=== PATIENT | male | born 1955 | race Caucasian/White ===

== ENCOUNTER 2018-09-26 20:17 | Observation (INO) | payer MEDICARE, OTHER ==
[~2018-09-26] VITALS: Ht 185.4 cm; Wt 104.0 kg
--- NOTE | 2018-09-26 20:33 | ERD ---
ER Documentation Chief Complaint Chief Complaint AP x 2 hours after eating dinner (hot dog) HPI The patient is a 62-year-old male, presenting to the ER because of right-sided abdominal pain after he had dinner, denies similar symptoms previously, denies fever, chills, neck pain, chest pain, vomiting, dysuria, diarrhea. He does not smoke nor drink Medical history: Hypertension, CAD Past surgical history: None ROS All systems reviewed and are negative except as per history of present illness. Medications Home Meds Active Scripts Ibuprofen* (Motrin*) 600 Mg Tab, 600 MG PO Q6H PRN for PAIN AND OR ELEVATED TEMP, #20 TAB Prov:TYRONE HARRIS MD 09/26/18 Allergies Allergies: Coded Allergies: No Known Allergy (Unverified , 09/26/18) Physical Exam Vitals Vital Signs Date Temp Pulse Resp B/P (MAP) Pulse Ox O2 O2 Flow FiO2 Time Delivery Rate 09/26/18 98.2 66 20 133/91 99 20:30 (105) Physical Exam Const: No acute distress. Head: Atraumatic. Eyes: Normal Conjunctiva. ENT: Normal External Ears, Nose and Mouth. Neck: Full range of motion. No meningismus. Resp: Clear to auscultation bilaterally. Cardio: Regular rate and rhythm. Abd: Soft, non distended, normal bowel sounds, mild right-sided abdominal tenderness, no rigidity/rebound/CVA tenderness Skin: No petechiae or rashes. Back: No midline or flank tenderness. Ext: No cyanosis, or edema. Neur: Awake and alert. No focal deficit Psych: Normal Mood and Affect. Result Diagram: 09/26/18211509/26/182115 Results 24 hrs Laboratory Tests Test 09/26/18 21:16 09/26/18 23:05 White Blood Count 9.1 10^3/ul Red Blood Count 5.98 10^6/ul Hemoglobin 16.2 g/dl Hematocrit 50.8 % Mean Corpuscular Volume 84.9 fl Mean Corpuscular Hemoglobin 27.1 pg Mean Corpuscular Hemoglobin Concent 31.9 g/dl Red Cell Distribution Width 12.7 % Platelet Count 218 10^3/UL Mean Platelet Volume 9.9 fl Immature Granulocytes % 0.400 % Neutrophils % 70.1 % Lymphocytes % 18.1 % Monocytes % 9.4 % Eosinophils % 1.3 % Basophils % 0.7 % Nucleated Red Blood Cells % 0.0 /100WBC Immature Granulocytes # 0.040 10^3/ul Neutrophils # 6.4 10^3/ul Lymphocytes # 1.6 10^3/ul Monocytes # 0.9 10^3/ul Eosinophils # 0.1 10^3/ul Basophils # 0.1 10^3/ul Nucleated Red Blood Cells # 0.0 10^3/ul Sodium Level 143 mmol/L Potassium Level 4.3 mmol/L Chloride Level 103 mmol/L Carbon Dioxide Level 29 mmol/L Anion Gap 11 Blood Urea Nitrogen 21 mg/dl Creatinine 0.92 mg/dl Est Glomerular Filtrat Rate mL/min > 60 mL/min Glucose Level 121 mg/dl Calcium Level 9.6 mg/dl Total Bilirubin 0.5 mg/dl Direct Bilirubin 0.00 mg/dl Indirect Bilirubin 0.5 mg/dl Aspartate Amino Transf (AST/SGOT) 25 IU/L Alanine Aminotransferase (ALT/SGPT) 35 IU/L Alkaline Phosphatase 74 IU/L Total Protein 7.2 g/dl Albumin 4.0 g/dl Globulin 3.20 g/dl Albumin/Globulin Ratio 1.25 Lipase 107 U/L Bedside Urine pH (LAB) 6.0 Bedside Urine Protein (LAB) Negative Bedside Urine Glucose (UA) Negative Bedside Urine Ketones (LAB) Negative Bedside Urine Blood Negative Bedside Urine Nitrite (LAB) Negative Bedside Urine Leukocyte Esterase (L Negative Current Medications Medications Dose Sig/Ryland Start Time Status Last (Trade) Ordered Route PRN Stop Time Admin Dose Reason Admin Morphine 2 mg ONCE STAT 09/26/18 DC 09/26/18 Sulfate IV 20:51 21:21 (morphine) 09/26/18 20:53 Ondansetron 4 mg ONCE STAT 09/26/18 DC 09/26/18 HCl (Zofran IV 20:51 21:21 Inj) 09/26/18 20:53 Sodium 1,000 ml @ Q1H ONCE 09/26/18 DC 09/26/18 Chloride 1,000 mls/hr IV 21:00 21:21 09/26/18 21:59 Procedures/MDM [place] [id number] Radiology Main Line: [phone] DIAGNOSTIC IMAGING REPORT Patient: TYRONE DIALLO : 1955 Age: 62 Sex: F MR #: [id number] [facility] #: [id number] DOS: 09/26/182050 Ordering MD: TYRONE HARRIS MD Location: E/R Room/Bed: PROCEDURE: CT abdomen and pelvis without contrast. CLINICAL INDICATION: Abdominal Pain TECHNIQUE: CT scan of the abdomen and pelvis without oral contrast was performed and is reconstructed at the 2.5 mm contiguous axial intervals from the dome of the diaphragm to the inferior pubic rami.. The patient was scanned without intravenous contrast. Sagittal and coronal reformatted images were obtained from the axial source images. The calculated radiation dose measures 1175 mGy centimeters. The CTDI measures 18.1 mGy. Individualized dose optimization technique was used for the performance of this exam. This included 1. Automated exposure control. 2. Adjustment of the mA and / or kV according to the patient's size. 3. Use of iterative reconstructed technique. DICOM images are available. COMPARISON: None. FINDINGS: The lung bases are clear of any infiltrate or nodule. No effusion is seen. There is elevation of the left hemidiaphragm. The liver is of normal size, contour and attenuation with no mass or ductal dilatation. No gallstones are visualized. No splenic, adrenal or pancreatic abnormalities present. Kidneys are of normal size and contour. No hydronephrosis, calculus or solid mass Is seen. There is a 5.3 cm parenchymal cyst of the right kidney. Multiple parapelvic cysts are seen in the left kidney. Ureters are of normal course and caliber with no stone. No bladder mass or stone is present. Prostate and seminal vesicles appear normal. There is no aneurysm. No adenopathy is present. No bowel mass or obstruction is present. The appendix is normal. No phlegmon, ascites or pneumoperitoneum is visualized. There is chronic deformity of the right humeral head and neck. There is lateral subluxation of the hip joint with flattening of the humeral head. The acetabulum is dysplastic. Noted is rotary levoscoliosis centered on the upper lumbar spine. There is a synovial cyst on the dorsal aspect of the right hip. IMPRESSION: No evidence of urolithiasis, obstructive uropathy, diverticulitis or appendicitis. Renal cysts. No further workup required. Elevated left hemidiaphragm. Rotary levoscoliosis of the lumbar spine. Dysplastic right hip with deformity of the femoral head and. Synovial cyst right hip. .Benito George MD, MD Date Time Electronically viewed and signed by .Benito George MD, MD on 09/26/2018 22:43 .A/ CC: TYRONE HARRIS MD [id number] [place] [id number] Radiology Main Line: [phone] DIAGNOSTIC IMAGING REPORT Patient: TYRONE DIALLO : 1955 Age: 62 Sex: F MR #: [id number] DOS: 09/26/182050 Ordering MD: TYRONE HARRIS MD Location: E/R Room/Bed: PROCEDURE: LIMITED ABDOMINAL ULTRASOUND OF GALL BLADDER CLINICAL INDICATION: 62 years of age, female. Abdominal pain. TECHNIQUE: Multiple real-time longitudinal and transverse images of the gallbladder and the bile ducts were acquired utilizing a curved array transducer. Images were reviewed on a high-resolution PACS workstation. COMPARISON: None available. FINDINGS: Ultrasound is limited due to bowel gas and body habitus. Pancreas: Not visualized. Obscured by bowel gas. Liver appearance: Diffusely echogenic. Smooth surface contour. Liver length: 12.8 cm Bile Ducts: No intrahepatic or extrahepatic biliary ductal dilatation. CBD: 0.3 cm. Gallbladder: Normally distended. Gallbladder wall measures 0.1 cm. There are echogenic foci at the gallbladder fundus that likely represents focal adenomy omatosis. Negative for gallstones. Main portal vein is patent with hepatopetal flow. Right kidney length: 10.1 cm. Right kidney appearance: There is a 4.9 cm exophytic cyst in the interpolar pa renchyma. Mild diffuse parenchymal thinning. Negative for hydronephrosis. Other: None. IMPRESSION: 1. Focal benign adenomyomatosis at the gallbladder fundus. Negative for gallstones or evidence of biliary obstruction. 2. Mildly echogenic liver parenchyma suggests mild hepatic steatosis. Normal liver size. 3. Ultrasound is limited due to bowel gas. The pancreas is not visualized. RPTAT: HCTS Physician Cornell Date Time Electronically viewed and signed by Physician Cornell on 09/26/2018 22:12 CS/ CC: TYRONE HARRIS MD [id number] MEDICAL MAKING DECISION: The patient is a 62-year-old male presenting with acute abdominal pain of unclear etiology, was treated with morphine 2 mg IV for pain, Zofran 4 mg IV for nausea and 1 L normal saline for clinical dehydration with good response. He is stable for outpatient follow-up The differential diagnoses considered include but are not limited to cholelithiasis, cholecystitis, choledocholithiasis, cholangitis, pancreatitis, hepatitis, gastritis, peptic ulcer disease, gastric ulcer, appendicitis, cystitis, diverticulitis, partial small bowel obstruction. Departure Diagnosis: Primary Impression: Abdominal pain Condition: Good Comments He was discharged with Motrin. I discussed the findings with the patient. I advised the patient to return in 8- hour for reevaluation, sooner if any concern. Disclaimer: Inadvertent spelling and grammatical errors are likely due to EHR/dictation software use and do not reflect on the overall quality of patient care. Also, please note that the electronic time recorded on this note does not necessarily reflect the actual time of the patient encounter. TYRONE HARRIS MD Sep 26, 2018 20:33
[2018-09-26] MEDS ORDERED: ONDANSETRON 4 MG INJ IV STA (20:51)
[2018-09-26] MEDS ORDERED: morphine 2 MG INJ IV STA (20:51)
[2018-09-26] MEDS ORDERED: SOD CHLORIDE 0.9% 1,000 ML IV ONE (21:00)
[2018-09-26] MEDS ORDERED: IBUP-1542 PO (23:13)
[2018-09-27] MEDS ORDERED: FURO20TA3 PO (17:44)
[2018-09-27] MEDS ORDERED: QUET25TA PO (17:45)
[2018-09-27] MEDS ORDERED: HYDR-3980 PO (17:46)
[2018-09-27] MEDS ORDERED: NITR0.4T32 SL (17:47)
[2018-09-27] MEDS ORDERED: TEMA15CA6 PO (17:47)
[2018-09-27] MEDS ORDERED: NACL 0.9% 3 ML SYG IV SCH (21:00)
[2018-09-27] MEDS ORDERED: ACETAMINOPHEN 325 MG TAB PO PRN (21:00)
[2018-09-27] MEDS ORDERED: ONDANSETRON 4 MG INJ IV PRN (21:00)
[2018-09-27] MEDS ORDERED: BISACODYL (EC) 5 MG TAB PO PRN (21:00)
[2018-09-27] MEDS ORDERED: DOCUSATE SODIUM 100 MG CAP PO PRN (21:00)
[2018-09-27 21:58] VITALS: BP 131/69; PULSE 68; RESP 18
[2018-09-27 22:23] VITALS: Ht 185.4 cm; Wt 104.0 kg
--- NOTE | 2018-09-27 23:05 | HP ---
Date/Time of Note Date/Time of Note DATE: 09/27/18 TIME: 23:05 Assessment/Plan VTE Prophylaxis Pharmacological prophylaxis: heparin Lines/Catheters IV [facility] Saline Lock Assessment/Plan Hospital Course This is a 62-year-old male being admitted to the [facility] floor for: #1 abdominal pain: Resolved. Possibly secondary to underlying constipation. Imaging studies did not show any acute abnormalities. Patient did have a bowel movement. Will initiate the patient on Colace 100 mg twice daily and MiraLAX 17 g packet daily. #2 mild dehydration: Improved with IV fluids. Encourage p.o. diet. #3 chronic debility: Patient does get around with a wheelchair. His chronic right knee osteoarthritis. #4 right knee osteoarthritis: Pain management #5 hypertension: Monitor closely, PRN hydralazine #6 coronary artery disease: Patient currently not on any meds #7 mood disorder: Patient does have quetiapine and Restoril on board however there is no dosages. Mediven PRN, will need to confirm patient's home medicat ions #8 social work consult: Social work and case management been consulted for placement for this patient. #9 DVT GI prophylaxis: Heparin, no GI prophylaxis indicated #10 DVT GI prophylaxis: Heparin, no GI prophylaxis indicated Further treatment strategy will be implemented as per the clinical course. Result Diagram: 09/26/18211509/26/182115 HPI/ROS Admit Date/Time Admit Date/Time Sep 27, 2018 at 19:04 Hx of Present Illness Chief complaint: Abdominal pain The patient is a 62-year-old male, presented to the [facility] ER on 09/26 because of right-sided abdominal pain after he had dinner. He denied ever having similar symptoms before. He denied having chills fever nausea vomiting diarrhea. Patient had gallbladder and CT imaging studies performed which did not show any acute abnormalities. She was also noted to be dehydrated. He was given fluid bolus normal saline, Zofran and morphine. And patient did result in improvement. He was supposed to be transferred back to to the [facility] facility that he recently came from. However social work discovered that the facility that he had come from was unlicensed and it was determined that the patient could not be discharged back to the facility. Patient was then admitted to the hospital for further observation until social work would be able to find placement for him in the morning. Currently patient is asymptomatic. He does report that he had a bowel movement in the emergency department. Allergies: NKDA Medications: Ibuprofen Furosemide [place] 103 25 Nitroglycerin sublingual Seroquel Restoril ROS Const: As per HPI Eyes : No pain discharge or redness or change in visual acuity ENT: No pain, sore throat, congestion, congestion, dysphagia or discharge Respiratory: No shortness of breath, cough, sputum, wheezing, or pleuritic pain Cardiovascular: No chest pain, palpitation, PND, or edema GI : As per HPI Genitourinary: No dysuria, hematuria, flank pain , discharge or CVA tenderness Musculoskeletal: No joint pain, back pain, neck pain, restricted range of motion in neck or joints Skin: No rash, bruising or hives Neuro: No headache, dizziness, syncope, seizure, focal weakness Endocrine: No polyuria, polydipsia, temperature intolerance Psych: No hallucination, depression, anxiety or suicidal ideation PMH/Family/Social Past Medical History Hypertension, coronary artery disease, right knee arthritis Medications Current Medications IV Flush (NS 3 ml) 3 ml PER PROTOCOL IV ; Start 09/27/18 at 21:00 Ondansetron HCl (Zofran Inj) 4 mg Q6H PRN IV NAUSEA/VOMITING; Start 09/27/18 at 21:00 Acetaminophen (Tylenol Tab) 650 mg Q6H PRN PO .PAIN 1-3 OR TEMP; Start 09/27/18 at 21:00 Docusate Sodium (Colace) 100 mg Q12H PRN PO .CONSTIPATION; Start 09/27/18 at 21:00 Bisacodyl (Dulcolax) 5 mg DAILY PRN PO .CONSTIPATION; Start 09/27/18 at 21:00 Coded Allergies: No Known Allergy (Unverified , 09/27/18) Past Surgical History Right hip fracture, left 2 knee surgeries Family History Significant Family History: no pertinent family hx Social History Alcohol Use: none Smoking Status: Never smoker Drug Use: none Exam/Review of Systems Vital Signs Vitals Vital Signs Date Temp Pulse Resp B/P (MAP) Pulse Ox O2 O2 Flow FiO2 Time Delivery Rate 09/27/18 98.8 68 18 131/69 94 21:58 (89) 09/27/18 Room Air 21:38 Exam Exam General: Patient is currently sitting upright in bed in no acute distress HEENT: Atraumatic, normocephalic. The pupils are equal, round and reactive. Extraocular motor are intact Neck: Supple with full range of motion. No rigidity or meningismus Chest: Nontender Lungs: Clear to auscultation bilaterally no crackles rales or wheezing Heart: Normal S1-S2, Regular rhythm and rate. No murmur, S3, or S4 Abdomen: Soft , nontender, nondistended , bowel sounds are present. No guarding no rebound tenderness , No masses or organomegaly. No costovertebral temporal angle mass Extremities: Normal to inspection, no edema no cyanosis Neurologic: Normal mental status, speech normal, cranial nerves II through XII are intact, motor and sensory are intact, patient does report that he gets around with a wheelchair as he does have some chronic ambulatory dysfunction Additional Comments PROCEDURE: LIMITED ABDOMINAL ULTRASOUND OF GALL BLADDER CLINICAL INDICATION: 62 years of age, female. Abdominal pain. TECHNIQUE: Multiple real-time longitudinal and transverse images of the gallbladder and the bile ducts were acquired utilizing a curved array garcia sducer. Images were reviewed on a high-resolution PACS workstation. COMPARISON: None available. FINDINGS: Ultrasound is limited due to bowel gas and body habitus. Pancreas: Not visualized. Obscured by bowel gas. Liver appearance: Diffusely echogenic. Smooth surface contour. Liver length: 12.8 cm Bile Ducts: No intrahepatic or extrahepatic biliary ductal dilatation. CBD: 0.3 cm. Gallbladder: Normally distended. Gallbladder wall measures 0.1 cm. There are echogenic foci at the gallbladder fundus that likely represents focal adenomyomatosis. Negative for gallstones. Main portal vein is patent with hepatopetal flow. Right kidney length: 10.1 cm. Right kidney appearance: There is a 4.9 cm exophytic cyst in the interpolar parenchyma. Mild diffuse parenchymal thinning. Negative for hydronephrosis. Other: None. IMPRESSION: 1. Focal benign adenomyomatosis at the gallbladder fundus. Negative for gallstones or evidence of biliary obstruction. 2. Mildly echogenic liver parenchyma suggests mild hepatic steatosis. Normal liver size. 3. Ultrasound is limited due to bowel gas. The pancreas is not visualized. RPTAT: HCTS Physician Cornell Date Time Electronically viewed and signed by Physician Cornell on 09/26/2018 22:12 CS/ CC: TYRONE HARRIS MD [id number] PROCEDURE: CT abdomen and pelvis without contrast. CLINICAL INDICATION: Abdominal Pain TECHNIQUE: CT scan of the abdomen and pelvis without oral contrast was performed and is reconstructed at the 2.5 mm contiguous axial intervals from the dome of the diaphragm to the inferior pubic rami.. The patient was scanned without intravenous contrast. Sagittal and coronal reformatted images were obtained from the axial source images. The calculated radiation dose measures 1175 mGy centimeters. The CTDI measures 18.1 mGy. Individualized dose optimization technique was used for the performance of this exam. This included 1. Automated exposure control. 2. Adjustment of the mA and / or kV according to the patient's size. 3. Use of iterative reconstructed technique. DICOM images are available. COMPARISON: None. FINDINGS: The lung bases are clear of any infiltrate or nodule. No effusion is seen. There is elevation of the left hemidiaphragm. The liver is of normal size, contour and attenuation with no mass or ductal dilatation. No gallstones are visualized. No splenic, adrenal or pancreatic abnormalities present. Kidneys are of normal size and contour. No hydronephrosis, calculus or solid mass Is seen. There is a 5.3 cm parenchymal cyst of the right kidney. Multiple parapelvic cysts are seen in the left kidney. Ureters are of normal course and caliber with no stone. No bladder mass or stone is present. Prostate and seminal vesicles appear normal. There is no aneurysm. No adenopathy is present. No bowel mass or obstruction is present. The appendix is normal. No phlegmon, ascites or pneumoperitoneum is visualized. There is chronic deformity of the right humeral head and neck. There is lateral subluxation of the hip joint with flattening of the humeral head. The acetabulum is dysplastic. Noted is rotary levoscoliosis centered on the upper lumbar spine. There is a synovial cyst on the dorsal aspect of the right hip. IMPRESSION: No evidence of urolithiasis, obstructive uropathy, diverticulitis or appendicitis. Renal cysts. No further workup required. Elevated left hemidiaphragm. Rotary levoscoliosis of the lumbar spine. Dysplastic right hip with deformity of the femoral head and. Synovial cyst right hip. .Benito George MD, Date Time Electronically viewed and signed by .Benito George MD, MD on 09/26/2018 22:43 .A/ CC: TYRONE HARRIS MD [id number] SANIA GUTIERREZ Sep 27, 2018 23:05
[2018-09-28] MEDS ORDERED: LORAZEPAM 0.5 MG TAB PO ONE
[2018-09-28] MEDS ORDERED: hydrALAzine 20 MG INJ IV PRN (00:30)
[2018-09-28 01:23] VITALS: BP 98/50; PULSE 77; RESP 18
[2018-09-28] MEDS: HEPARIN 5,000 UNIT/1 ML VIAL SC SCH ×3 (01:42→14:49)
[2018-09-28 07:50] VITALS: BP 97/64; PULSE 78; RESP 18
--- NOTE | 2018-09-28 11:21 | PDOCDIS ---
Discharge Instructions DIAGNOSIS Discharge Diagnosis #1 abdominal pain: Resolved. #2 mild dehydration: Improved with IV fluids #3 chronic debility: P #4 right knee osteoarthritis: #5 hypertension #6 coronary artery disease: #7 mood disorder: CONDITION [id number] Patient Condition: [id number] Stable HOME CARE INSTRUCTIONS: [id number] Diet Instructions: [id number] Low Fat /Cholesterol FOLLOW UP/APPOINTMENTS Follow-up Plan Follow up with your primary care provider in one week DANIELA ROBISON NP Sep 28, 2018 11:21
--- NOTE | 2018-09-28 11:40 | PN ---
Date/Time of Note Date/Time of Note DATE: 09/28/18 TIME: 11:24 Assessment/Plan VTE Prophylaxis SCD applied (from Nsg): No SCD contraindicated: other Pharmacological prophylaxis: heparin Lines/Catheters IV Catheter Type (from Nrsg): Saline Lock Assessment/Plan Hospital Course Assessment and plan 1. Abdominal pain. Resolved. Suspect secondary to constipation. Abdominal imaging with no acute abnormalities. Patient did report resolution of pain. Will monitor. 2. Mild dehydration. Improved with IV fluids. Monitor. 3. History of chronic debility. 4. Right knee Osteoarthritis. Continue with analgesics. 5. Hypertension. Will provide with antihypertensives as needed. 6. suspect CAD. Follow-up on CHD panel. 7. History of mood disorder. Will resume patient's on medications. Disposition plan. Appears overall stable. Case management involved for transfer back to longterm facility. Anticipate discharge within the next [address] POC [address] Willard Result Diagram: 09/26/18211509/26/182115 Subjective 24 Hr Interval Summary Free Text/Dictation comfortable at present. denies abd pain Exam/Review of Systems Exam Vitals Vital Signs Date Temp Pulse Resp B/P (MAP) Pulse Ox O2 O2 Flow FiO2 Time Delivery Rate 09/28/18 98.6 78 18 97/64 (75) 98 Room Air 07:50 Intake and Output 09/27/18 09/27/18 09/28/18 1515:00 23:00 07:00 IntakeIntake Total 600 ml OutputOutput Total 350 ml BalanceBalance 250 ml Constitutional: alert, oriented Psych: nl mood/affect Head: normocephalic Respiratory: clear to auscultation, normal air movement Cardiovascular: regular rate and rhythm Gastrointestinal: soft, non-tender Musculoskeletal: other (right knee with compression wrap ) Neurological: nl mental status, nl speech Skin: nl turgor Medications Medication Current Medications IV Flush (NS 3 ml) 3 ml PER PROTOCOL IV ; Start 09/27/18 at 21:00 Ondansetron HCl (Zofran Inj) 4 mg Q6H PRN IV NAUSEA/VOMITING; Start 09/27/18 at 21:00 Acetaminophen (Tylenol Tab) 650 mg Q6H PRN PO .PAIN 1-3 OR TEMP; Start 09/27/18 at 21:00 Docusate Sodium (Colace) 100 mg Q12H PRN PO .CONSTIPATION; Start 09/27/18 at 21:00 Bisacodyl (Dulcolax) 5 mg DAILY PRN PO .CONSTIPATION; Start 09/27/18 at 21:00 Lorazepam (Ativan) 0.5 mg HS PO ; Start 09/28/18 at 21:00 Heparin Sodium (Porcine) (Heparin (5000 Units/1ml)) 5,000 unit Q8 SC Last administered on 09/28/18at 09:58; Admin Dose 5,000 UNIT; Start 09/28/18 at 00:00 Hydralazine HCl (Apresoline) 10 mg Q4H PRN IV ELEVATED BLOOD PRESSURE; Start 09/28/18 at 00:30 DANIELA ROBISON NP Sep 28, 2018 11:34
[2018-09-28 14:14] VITALS: BP 123/72; PULSE 53; RESP 18
[2018-09-28] MEDS ORDERED: LORAZEPAM 0.5 MG TAB PO SCH (21:00)
--- NOTE | 2018-09-29 20:15 | DS ---
Date/Time of Note Date/Time of Note DATE: 09/29/18 TIME: 20:14 Discharge Summary Admission/Discharge Info Admit Date/Time Sep 27, 2018 at 19:04 Discharge Date/Time Sep 28, 2018 at 17:50 Discharge Diagnosis #1 abdominal pain: Resolved. #2 mild dehydration: Improved with IV fluids #3 chronic debility: P #4 right knee osteoarthritis: #5 hypertension #6 mood disorder: Patient Condition: Stable Hospital Course This is a 62-year-old male with history of chronic debility, osteoarthritis, hypertension, mood disorder, who was brought to the hospital after having abdominal pain from eating dinner. He denied having any fevers or chills or nausea or vomiting. He was brought to the hospital for symptoms. He had a CT scan of his abdomen that did not show any acute abnormalities. It was likely that the patient was dehydrated. He was given IV fluids as well as Zofran and analgesia for pain and his symptoms resolved. They were planning to transfer him back to his [facility] care facility where he resides however after social work evaluation was discussed discovered that the facility that he had come from was unlicensed and it was deemed that the patient cannot be discharged back to that facility. Patient was therefore admitted to our hospital for observation and so social group worker did find an appropriate place for the patient. Patient was otherwise optimized medically. He was resumed on his antihypertensives and we did provide the patient with appropriate analgesics for his osteoarthritis as well. pre press manager and social group worker did find appropriate residency for the patient. The plan of care was discussed with the patient and patient verbalizes understanding. On the day of discharge patient was in stable Discussed POC with [facility] Med[facility] Reported Medications Temazepam* (Restoril*) Unknown Strength Capsule, PO, CAP UNABLE TO VERIFIED 09/27/18 Quetiapine Fumarate* (Seroquel*) Unknown Strength Tablet, PO, #30 TAB UNABLE TO VERIFIED 09/27/18 Discontinued Reported Medications Nitroglycerin* (Nitroglycerin* SL) Unknown Strength Tab.subl, SL, BOTTLE 09/27/18 Hydrocodone/Acetaminophen ([place] 10-325 Tablet) Unknown Strength Tablet, PO, TAB UNABLE TO VERIFIED 09/27/18 Furosemide* (Furosemide*) Unknown Strength Tablet, PO, #60 TAB UNABLE TO VERIFIED 09/27/18 Discontinued Scripts Ibuprofen* (Motrin*) 600 Mg Tab, 600 MG PO Q6H PRN for PAIN AND OR ELEVATED TEMP, #20 TAB Prov:TYRONE HARRIS MD 09/26/18 Follow-up Plan Follow up with your primary care provider in one week Primary Care Provider Care Physician No Primary Time spent on discharge: > 30 minutes DANIELA ROBISON NP Sep 29, 2018 20:15
== END 2018-09-28 17:50 ==
LOC: E/R 20:17 → EDSEX 20:17 → 2NE 09-27 19:04
PROVIDERS: ADMIT Family Medicine; ATTEND Family Medicine
DX: R10.9 Unspecified abdominal pain (principal); E86.0 Dehydration; R53.81 Other malaise; M17.11 Unilateral primary osteoarthritis, right knee; I10 Essential (primary) hypertension; F39 Unspecified mood [affective] disorder
CPT/HCPCS: 36415; 73562; 74176; 76705; 80053; 81003; 83690; 85025; 96374; 96375; 97161; 99285; G0378; J1644; J2270; J2405; J7030